=== PATIENT | female | born 1965 | race Caucasian/White ===

== ENCOUNTER → 2018-05-24 | Outpatient (CLI) | payer BC ==
--- NOTE | 2018-05-24 10:03 | Diagnostic Imaging Report ---
INDICATION: Chronic pain in right ankle. AP, oblique, lateral views of the right ankle are obtained. No acute fracture or acute bony abnormality is seen. There is chronic irregularity of the medial malleolus of the distal tibia. There is mild degenerative change of the ankle joint with osteophyte formation anteriorly. There is mild degenerative change of the talocalcaneal joint. IMPRESSION: Chronic findings as above with no acute abnormality. Dictated by: Dictated on workstation # [id number]
--- NOTE | 2018-05-24 10:34 | Diagnostic Imaging Report ---
INDICATION: Right foot pain. TIME OF EXAM: 9:46 AM FINDINGS: Three views of the right foot were obtained. There is a bunion deformity present. Metatarsals otherwise appear to be intact. Phalanges are intact. Midfoot and hindfoot are unremarkable. No fractures are seen. IMPRESSION: Chronic changes. No acute bony abnormality is detected. Dictated by: Dictated on workstation # [id number]
== END ==
LOC: RAD FS 09:42
PROVIDERS: ATTEND Nurse Practitioner
DX: M20.11 Hallux valgus (acquired), right foot (principal); M25.771 Osteophyte, right ankle; M19.071 Primary osteoarthritis, right ankle and foot; M89.9 Disorder of bone, unspecified
CPT/HCPCS: 73610; 73630

== ENCOUNTER 2019-07-12 08:45 | Outpatient (RCR) | payer BC, OTHER ==
[~2019-07-12] VITALS: Ht 165.1 cm; Wt 85.9 kg
[~2019-07-12 08:45] MED LIST: GBPN600T PO; GLYB5TAB6 PO; IBUP-1780 PO; LISI-552 PO
== END 2019-07-12 14:41 | disposition home or self-care (01) ==
LOC: PREOP 08:45
PROVIDERS: ATTEND Surgery
DX: Z01.812 Encounter for preprocedural laboratory examination (principal); Z11.59 Encounter for screening for other viral diseases; K62.89 Other specified diseases of anus and rectum
CPT/HCPCS: 87635

== ENCOUNTER 2019-07-16 09:05 | Day surgery (SDC) | payer BC, OTHER ==
[~2019-07-16] VITALS: Ht 165 cm; Wt 77.2 kg
[~2019-07-16 09:05] MED LIST changes: +LACTATED RINGERS 1,000 ML IV ONE
[2019-07-16] MEDS ORDERED: LACTATED RINGERS 1,000 ML IV STA (09:10)
[2019-07-16 09:15] VITALS: BP 144/96
--- OUTSIDE RECORDS SUMMARY | 2019-07-16 09:35 | XMS REPORT ---
Author Author Lulu LECHUGA Organization [facility] Address [address] [place] [address] Care Team Providers Care Cigarette Stamper Name Role Phone MOHINI LECHUGA Unavailable PROBLEMS Type Condition ICD9-CM Code YPC96-AT Code Onset Dates Condition S tatus SNOMED Code Problem Neuropathy 355.9 Apr, 0 262216 004 Problem Neuropathy G62.9 Apr, 0 968137 004 Problem Nausea with vomiting 787.01 Sep, 0 32051915 Problem Well woman exam with routine gynecological exam V72.31 Apr, 0 907712809310305 Problem Type 2 diabetes mellitus without complication E11. 9 June, 0 579030175 Problem Primary osteoarthritis of right knee M17.11 Aug, 0 067556369 Problem Well woman exam with routine gynecological exam Z01.419 Apr, 0 643434546501032 Problem Acute lateral meniscus tear of right knee S83.281A Oct, 0 994481973 Problem Acute lateral meniscus tear of right knee 836.1 Oct, 0 864932347 Problem Other ganglion and cyst of synovium, tendon, and bursa (727.49) M67.49 Feb, 0 Problem Nausea with vomiting R11.2 Sep, 0 26394290 Problem Major depression F32.9 Active 370 178913 Problem Type 2 diabetes mellitus without complication 250.00 June, 0 725815568 Problem Vitamin D deficiency E55.9 Active 15342710 Problem Cigarette nicotine dependence, uncomplicated F17.2 10 Apr, 0 412132480 Problem Primary osteoarthritis of right knee 715.16 Aug, 0 856207316 Problem Cigarette nicotine dependence, uncomplicated 305.1 Apr, 0 764902294 Problem Pure hypercholesterolemia E78.00 Acti ve 291327633 Problem Diabetic neuropathy E11.40 Active 785082631 ALLERGIES No Information ENCOUNTERS Encounter Location Date Diagnosis [facility] [address] [place] [address] Jul, [facility] [address] [address] Jul, Pain R52 [facility] [address] [address] June, Pain R52 [facility] [address] [place] [address] May, Major depression F32.9 [facility] [address] [place] [address] May, [facility] [address] [place] [address] May, Pain R52 [facility] [address] [facility] [place] [address] Apr, Shoulder injury, left, initial encounter S49.92XA and Drug screening, pre-employment Z02.1 [facility] [address] [place] [address] Apr, Major depression F32.9 ; Foot pain, righ t M79.671 and Diabetic neuropathy E11.40 [facility] [address] [place] [address] Apr, Major depression F32.9 [facility] [address] [place] [address] Apr, Pain R52 [facility] [address] [place] [address] Mar, Major depression F32.9 ; Diabetic neurop athy E11.40 ; Vitamin D deficiency E55.9 and Pure hypercholesterolemia E78.00 [facility] [address] [facility] [id number] [address] [place] [address] Mar, Pain R52 [facility] [address] [facility] [id number] [address] [place] [address] Jan, [facility] [address] [facility] [id number] [address] [place] [address] Jan, [facility] [address] [facility] [id number] [address] [place] [address] Jan, [facility] [address] [facility] [id number] [address] [place] [address] Jan, [facility] [address] [facility] [id number] [address] [place] [address] Feb, IMMUNIZATIONS No Known Immunizations SOCIAL HISTORY Never Assessed REASON FOR VISIT Controlled Med Refill 05/04 PLAN OF CARE VITAL SIGNS MEDICATIONS Medication Instructions Dosage Frequency Start Date End Date Duration S tatus Hydrocodone-Acetaminophen 7.5-325 MG Orally TID PRN 1 tablet as nee ded Apr, 28 days Active RESULTS No Results PROCEDURES No Known procedures INSTRUCTIONS MEDICATIONS ADMINISTERED No Known Medications MEDICAL (GENERAL) HISTORY Type Description Date Medical History Neuropathy Medical History Osteoarthritis Medical History Type 2 diabetes mellitus Medical History Hypertension Medical History Depression Surgical History Right Knee Surgery Surgical History hysterectomy, vaginal Surgical History tubal ligation Surgical History cholecystectomy Hospitalization History see surgeries
--- OUTSIDE RECORDS SUMMARY | 2019-07-16 09:35 | XMS REPORT ---
Author Author Lulu LECHUGA Organization [facility] Address [address] [place] [address] Care Team Providers Care Cork Insulator Helper Name Role Phone MOHINI LECHUGA Unavailable PROBLEMS Type Condition ICD9-CM Code DRR62-DD Code Onset Dates Condition S tatus SNOMED Code Problem Neuropathy G62.9 30 Apr, 2010 Active 067526 004 Problem Primary osteoarthritis of right knee M17.11 22 Aug, 2014 Active 487850422 Problem Acute lateral meniscus tear of right knee S83.2 81A 28 Oct, 2014 Active 004146397 Problem Other ganglion and cyst of synovium, tendon, and bursa (727.49) M67.49 09 Feb, 2013 Active Problem Moderate episode of recurrent major depressive disorder F33.1 Active 519021311 Problem Cigarette nicotine dependence, uncomplicated F1 7.210 10 Apr, 2015 Active 726911044 Problem Morbid obesity E66.01 Active 80180 6002 Problem Nausea with vomiting R11.2 Sep, Active 58758453 Problem Vitamin D deficiency E55.9 Active 33921453 Problem Diabetic neuropathy E11.40 Active 622390167 Problem Pure hypercholesterolemia E78.00 Acti ve 940241192 Problem Type 2 diabetes mellitus wit h other specified complication, without long-term current use of insulin E11.69 Active 54196885 ALLERGIES No Known Allergies ENCOUNTERS Encounter Location Date Diagnosis [address] [id number] [place] [address] Aug, [address] [id number] [address] May, Left hand pain M79.642 ; Typ e 2 diabetes mellitus with other specified complication, without long-term current use of insulin E11.69 ; Morbid obesity E66.01 ; Diabetic neuropathy E11.40 ; Other ganglion and cyst of synovium, tendon, and bursa(727.49) M67.49 and Lice B85.[address] [id number] [place] [address] May, Pain R52 [address] [id number], [place] [address] Apr, Moderate episode of recurren t major depressive disorder F33.1 ; Morbid obesity E66.01 ; Pain in right hand M79.641 and Pain in left hand M79.642 [facility] [address] [id number] [place] [address] Apr, Pain R52 [address] [id number], [place] [address] Apr, [facility] [address] [facility]NOTE 3[facility] [id number] [address] [place] [address] Mar, [address] [id number], [place] [address] Mar, Morbid obesity E66.01 ; Type 2 diabetes mellitus with other specified complication, without long-term current use of insulin E11.69 ; Vitamin D deficiency E55.9 ; Moderate episode of recurrent major depressive disorder F33.1 and Pain R52 [address] [id number], [place] [address] Mar, Pain R52 [place] [address] [id number] [address] Feb, Screening for breast cancer Z12.[address] [id number], [place] [address] Feb, Moderate episode of recurren t major depressive disorder F33.1 ; Type 2 diabetes mellitus with other specified complication, without long-term current use of insulin E11.69 ; Morbid obesity E66.01 ; Neuropathy G62.9 and Acute non-recurrent maxillary sinusitis J01.[address] [id number], [place] [address] Feb, Pain R52 [facility] [address] [facility]NOTE 3[facility] [id number] [address] [place] [address] Feb, Screening for breast cancer Z12.[address] [id number] [place] [address] Jan, Pain R52 and High risk medic ation use Z79.[address] [id number], [place] [address] Jan, [address] [id number] [place] [address] Jan, Pain R52 [address] [id number], [place] [address] Dec, High risk medication use Z79 .[address] [id number], [place] [address] Dec, Moderate episode of recurren t major depressive disorder F33.1 ; Diabetic neuropathy E11.40 ; Type 2 diabetes mellitus with other specified complication, without long-term current use of insulin E11.69 and Pure hypercholesterolemia E78.00 [facility] [address] [id number], [place] [address] Dec, [facility] [address] [id number], [place] [address] Dec, Pain R52 [facility] [address] [id number] [place] [address] Nov, [address] [id number] [place] [address] Nov, High risk medication use Z79 .899 and Pain R52 [address] [id number] [place] [address] Nov, High risk medication use Z79 .899 ; Diabetic neuropathy E11.40 ; Pure hypercholesterolemia E78.00 ; Acute pain of left knee M25.562 ; Cigarette nicotine dependence, uncomplicated F17.210 ; Primary osteoarthritis of right knee M17.11 and Vitamin D deficiency E55.9 [facility] [address] [id number] [place] [address] Oct, Pain R52 [facility] [address] [id number] [place] [address] Sep, Pain R52 [facility] [address] [id number] [place] [address] Sep, Pain R52 [facility] [address] [id number] [place] [address] Aug, Diabetic neuropathy E11.40 [facility] [address] [id number] [place] [address] Jul, Pain R52 [facility] [address] [id number] [place] [address] Jul, [facility] [address] [id number] [place] [address] Jul, Pain R52 [facility] [address] [id number] [place] [address] June, Pain R52 [facility] [address] [id number] [place] [address] May, Major depression F32.9 [facility] [address] [id number] [place] [address] May, [facility] [address] [id number] [place] [address] May, Pain R52 [facility] [address] [id number] [place] [address] Apr, Shoulder injury, left, initi al encounter S49.92XA and Drug screening, pre-employment Z02.1 [facility] [address] [id number] [place] [address] Apr, Major depression F32.9 ; Jignesh t pain, right M79.671 and Diabetic neuropathy E11.[address] [id number], [place] [address] Apr, Major depression F32.[address] [id number], [place] [address] 14 Apr, 2018 Pain R52 [address] 340 [id number], [place] [address] 20 Mar, 2018 Major depression F32.9 ; Porsche betic neuropathy E11.40 ; Vitamin D deficiency E55.9 and Pure hypercholesterolemia E78.00 [facility] [address] [facility]NOTE [facility]] [id number] [address] [place] [address] 13 Mar, 2018 Pain R52 [facility] [address] [id number] [address] [place] [address] 30 Jan, 2018 [facility] [address] [facility]NOTE [facility]] [id number] [address] [place] [address] Jan, [facility] [address] [id number] [address] [place] [address] Jan, [facility] [address] [facility]NOTE 3] [id number] [address] [place] [address] Jan, [facility] [address] [facility]NOTE 3] [id number] [address] [place] [address] Feb, IMMUNIZATIONS No Known Immunizations SOCIAL HISTORY Never Assessed REASON FOR VISIT Fatigue med F/U, right foot pain. love oviedo PLAN OF CARE Activity Details Follow Up prn Reason: VITAL SIGNS Height 5ft 5in in 2018-05-14 Weight 198 lbs 2018-05-14 Temperature 97.2 degrees Fahrenheit 2018-05-14 Heart Rate 94 bpm 2018-05-14 Respiratory Rate 18 2018-05-14 BMI 32.95 kg/m2 2018-05-14 Blood pressure systolic 110 mmHg 2018-05-14 Blood pressure diastolic 70 mmHg 2018-05-14 MEDICATIONS Medication Instructions Dosage Frequency Start Date End Date Duration S tatus Lipitor 10 MG Orally Once a day 1 tablet 24h Active Hydrocodone-Acetaminophen 7.5-325 MG Orally TID PRN 1 tablet as nee ded Apr, 28 days Active Cymbalta 60 MG Orally Once a day 1 capsule 24h Mar, 30 day(s) Active Glucophage 1000 MG Orally Once a day 1 tablet with a meal 24h Active Neurontin 600 MG Orally Three times a day 1 capsule 8h 30 days Active Lisinopril 10 MG Orally Once a day 1 tablet 24h 30 d ay(s) Active GlyBURIDE 5 TAKE 1 TABLET BY MOUTH DAILY WITH BREAKFAST Active [place] 3 1000 MG Orally Once a day 1 capsule 24h 30 d ay(s) Not-Taking Ibuprofen 800 MG Orally Three times a day 1 tablet with food or milk as needed 8h Active Xanax 0.25 MG Orally TID PRN 1 tablet Apr, 30 da ys Active Albuterol Sulfate HFA 108 (90 Base) MCG/ACT Inhalation every 6 hrs 2 puffs as needed 6h Not-Taking Flonase 50 MCG/ACT Nasally Once a day 1 spray in each nostril 24h 30 day(s) Not-Taking Ergocalciferol 98830 UNIT Orally once weekly 1 capsule Active Lisinopril 10 TAKE 1 TABLET (10 MG) BY MOUTH DAILY. Active RESULTS No Results PROCEDURES No Known procedures INSTRUCTIONS MEDICATIONS ADMINISTERED No Known Medications MEDICAL (GENERAL) HISTORY Type Description Date Medical History Neuropathy Medical History Osteoarthritis Medical History Type 2 diabetes mellitus Medical History Hypertension Medical History Depression Surgical History Right Knee Surgery Surgical History Hysterectomy-Vaginal Surgical History Tubal Ligation Surgical History Lap M[place]ille Hospitalization History Surgeries
--- OUTSIDE RECORDS SUMMARY | 2019-07-16 09:35 | XMS REPORT | Continuity of Care Document ---
Author Organization Unknown Address Unknown Phone Unavailable Allergies Active Description Code Type Severity Reaction Onset Reported/Identified Relationship to Patient Clinical Status Yes No Known Drug Allergies [id number] Drug Allergy Unknown N/A 07/09/2019 Medications There is no data. Problems Date Dx Coded Attending Type Code Diagnosis Diagnosed By 05/25/2018 BILLY CARR Ot M19.071 PRIMARY OSTEOARTHRITIS, RIGHT ANKLE AND 05/25/2018 BILLY CARR Ot M20.11 HALLUX VALGUS (ACQUIRED), RIGHT FOOT 05/25/2018 BILLY CARR Ot M25.771 OSTEOPHYTE, RIGHT ANKLE 05/25/2018 BILLY CARR Ot M89.9 DISORDER OF BONE, UNSPECIFIED 06/11/2018 BILLY CARR Ot M19.071 PRIMARY OSTEOARTHRITIS, RIGHT ANKLE AND 06/11/2018 BILLY CARR Ot M20.11 HALLUX VALGUS (ACQUIRED), RIGHT FOOT 06/11/2018 BILLY CARR Ot M25.771 OSTEOPHYTE, RIGHT ANKLE 06/11/2018 BILLY CARR Ot M89.9 DISORDER OF BONE, UNSPECIFIED 07/03/2019 BILLY CARR Ot M19.071 PRIMARY OSTEOARTHRITIS, RIGHT ANKLE AND 07/03/2019 BILLY CARR Ot M20.11 HALLUX VALGUS (ACQUIRED), RIGHT FOOT 07/03/2019 BILLY CARR Ot M25.771 OSTEOPHYTE, RIGHT ANKLE 07/03/2019 BILLY CARR Ot M89.9 DISORDER OF BONE, UNSPECIFIED Procedures There is no data. Results Test Result Range PDM - 09 PANEL (PROFILE 1) - 12/05/18 11 :01 Prescribed Drug 1 Xanax(TM) NRG Creatinine 137.8 mg/dL > or = 20.0 pH 5.9 4.5-9.0 Oxidant NEGATIVE mcg/mL <200 Amphetamines NEGATIVE ng/mL <500 medMATCH Amphetamines CONSISTENT NRG Benzodiazepines NEGATIVE ng/mL <100 medMATCH Benzodiazepines INCONSISTENT N RG Marijuana Metabolite NEGATIVE ng/mL <20 medMATCH Marijuana Metab CONSISTENT NRG Cocaine Metabolite NEGATIVE ng/mL <150 medMATCH Cocaine Metab CONSISTENT NRG Opiates POSITIVE ng/mL <100 Oxycodone NEGATIVE ng/mL <100 medMATCH Oxycodone CONSISTENT NRG COMMENT NRG Codeine NEGATIVE ng/mL <50 medMATCH Codeine CONSISTENT NRG Hydrocodone 1001 ng/mL <50 medMATCH Hydrocodone CONSISTENT NRG Hydromorphone 258 ng/mL <50 medMATCH Hydromorphone CONSISTENT NRG Morphine NEGATIVE ng/mL <50 medMATCH Morphine CONSISTENT NRG Norhydrocodone 520 ng/mL <50 medMATCH Norhydrocodone CONSISTENT NRG Prescribed Drug 2 [place](TM) NRG Barbiturates NEGATIVE ng/mL <300 medMATCH Barbiturates CONSISTENT NRG Methadone Metabolite NEGATIVE ng/mL <100 medMATCH Methadone Metab CONSISTENT NRG Phencyclidine NEGATIVE ng/mL <25 medMATCH Phencyclidine CONSISTENT NRG Coronavirus SARS-CoV-2 SO 2018 0 14:03 Coronavirus Ab [Units/volume] in Serum Negative Negative Encounters ACCT No. Visit Date/Time Discharge Status Pt. Type Provider Facility Loc./Unit Complaint [id number] 03/21/2019 14:30:00 03/21/2019 23:59: 59 CLS Outpatient [facility] [id number] 12/05/2018 10:15:00 Document Registration [id number] 07/12/2019 08:45:00 020 14:41:00 DIS Outpatient RAMON GANN DO [facility] PREOP COLONOSCOPY [id number] 05/24/2018 09:42:00 019 23:59:59 CLS Outpatient BILLY CARR [facility] RAD FS RIGHT ANKLE PAIN HALLU X VALGUS [id number] 07/16/2019 13:00:00 P EN Preadmit RAMON GANN DO [facility] ENDO RECTAL PAIN
[2019-07-16] MEDS ORDERED: proPOfol 200 MG/20 ML (DIPRIVAN) VIAL IV ONE (09:39)
[2019-07-16] MEDS ORDERED: MIDAZOLAM 2 MG/2 ML (VERSED) VIAL ONE (09:40)
--- NOTE | 2019-07-16 09:40 | Progress Note-Pre Operative ---
Pre-Operative Progress Note H&P Reviewed The H&P was reviewed, patient examined and no changes noted. Date Seen by Provider: July 16, 2019 Time Seen by Provider: 09:40 Date H&P Reviewed: July 16, 2019 Time H&P Reviewed: 09:40 Pre-Operative Diagnosis: rectal pain RAMON GANN DO July 16, 2019 09:40
[2019-07-16] MEDS ORDERED: HYDR-4342 PO (09:46)
[2019-07-16] MEDS ORDERED: METF-399 PO (09:46)
[2019-07-16] MEDS ORDERED: DICY10CA12 PO (09:46)
[2019-07-16 10:25] VITALS: BP 129/75
--- NOTE | 2019-07-16 10:27 | Progress Note-Post Operative ---
Post-Operative Progess Note Surgeon (s)/Clinical Account Executive (s) Surgeon RAMON GANN DO Clinical Account Executive: na Pre-Operative Diagnosis rectal pain Post-Operative Diagnosis normal colonoscopy Procedure & Operative Findings Date of Procedure 07/16/19 Procedure Performed/Findings colonoscopy Anesthesia Type per [facility] Estimated Blood Loss Estimated blood loss (mL): none Specimens/Packing Specimens Removed na RAMON GANN DO July 16, 2019 10:27
--- NOTE | 2019-07-16 10:29 | Discharge Inst-Simple/Standard ---
Discharge Inst-Standard Patient Instructions/Follow Up Plan of Care/Instructions/FU: 2-3 weeks Arabella Activity as Tolerated: Yes Discharge Diet: Regular Diet (high fiber) RAMON GANN DO July 16, 2019 10:29
[2019-07-16 10:30] VITALS: BP 167/82
[2019-07-16 11:00] VITALS: BP 152/88
--- NOTE | 2019-07-16 11:09 | Anesthesia-General Post-Op ---
MAC Patient Condition Mental Status/LOC: Same as Preop Cardiovascular: Satisfactory Nausea/Vomiting: Absent Respiratory: Satisfactory Pain: Controlled Complications: Absent Post Op Complications Complications None Follow Up Care/Instructions Patient Instructions None needed. Anesthesiology Discharge Order Discharge Order Patient is doing well, no complaints, stable vital signs, no apparent adverse anesthesia problems. REINA BAHENA DO July 16, 2019 11:09
[2019-07-16 11:15] VITALS: BP 152/88
--- NOTE | 2019-07-16 19:02 | OPERATIVE REPORT ---
DATE OF SERVICE: 07/16/2019 PREOPERATIVE DIAGNOSIS: Rectal pain. POSTOPERATIVE DIAGNOSES: Normal colon. PROCEDURE: Colonoscopy. SURGEON: Ramon Bell DO ANESTHESIA: Per MDA. ESTIMATED BLOOD LOSS: None. COMPLICATIONS: None. INDICATIONS: The patient is a 53-year-old female who has been having rectal pain, unknown source found. She understands risks and benefits of procedure and wished to proceed with procedure. Consent was signed in the chart. DESCRIPTION OF PROCEDURE: The patient was taken to the endoscopy suite, placed in left lateral recumbent position. Timeout was performed. Digital rectal exam was performed. There were no palpable polyps, masses or ulcerations. Scope was inserted in the rectum and advanced all the way to cecum with minimal difficulty. Prep was adequate with irrigation and suction. Scope was then slowly retracted back. There were no polyps, masses or ulcerations within the cecum, ascending, transverse, descending and sigmoid colon. Once in the rectum, scope was retroflexed noting no other pathology. Scope was returned to its normal position, slowly withdrawn until completely removed. The patient tolerated procedure well without any complications. She was taken to recovery room in stable condition. RECOMMENDATIONS: The patient will be changed to a high fiber diet to see if this gives her any improvement. She will need a repeat colonoscopy per screening guidelines. Any issues before that be seen at that time. The patient will follow up in the office in two to three weeks to see how she is doing. Job ID: [id number] DocumentID: [id number] Dictated Date: 07/16/2019 10:31:25 Office Workforce Planner Date: 07/16/2019 19:01:52 Dictated By: RAMON BELL DO
== END 2019-07-16 11:15 | disposition home or self-care (01) ==
LOC: ENDO 09:05
PROVIDERS: ATTEND Surgery
DX: K62.89 Other specified diseases of anus and rectum (principal); I10 Essential (primary) hypertension; E11.9 Type 2 diabetes mellitus without complications; K58.9 Irritable bowel syndrome, unspecified; F17.210 Nicotine dependence, cigarettes, uncomplicated; Z79.899 Other long term (current) drug therapy; Z79.84 Long term (current) use of oral hypoglycemic drugs; Z90.710 Acquired absence of both cervix and uterus; Z98.51 Tubal ligation status; Z83.6 Family history of other diseases of the respiratory system
CPT/HCPCS: 82962

== ENCOUNTER → 2019-08-30 | Outpatient (CLI) | payer OTHER ==
[~2019-08-30] MED LIST changes: +DICY10CA12 PO; +HYDR-4342 PO; -LACTATED RINGERS 1,000 ML IV ONE; +METF-399 PO
== END ==
LOC: LAB FS 10:27
PROVIDERS: ATTEND Emergency Medicine
DX: Z01.812 Encounter for preprocedural laboratory examination (principal); G56.02 Carpal tunnel syndrome, left upper limb; Z20.828 Contact with and (suspected) exposure to other viral communicable diseases
CPT/HCPCS: 87635

== ENCOUNTER → 2019-09-20 | Outpatient (CLI) | payer OTHER ==
[~2019-09-20] MED LIST changes: +HYDR-3817 PO; -HYDR-4342 PO
== END ==
LOC: LAB FS 10:01
PROVIDERS: ATTEND Emergency Medicine
DX: Z01.812 Encounter for preprocedural laboratory examination (principal); G56.02 Carpal tunnel syndrome, left upper limb; Z20.828 Contact with and (suspected) exposure to other viral communicable diseases
CPT/HCPCS: 87635

== ENCOUNTER 2020-09-21 05:35 | Outpatient (CLI) | payer BC ==
[~2020-09-21] VITALS: Ht 165.1 cm; Wt 84.0 kg
[~2020-09-21 05:35] MED LIST changes: +GLBR5T PO; -GLYB5TAB6 PO; -LISI-552 PO; +LISI20TA26 PO
[2020-09-21] MEDS ORDERED: BUPR-42 PO (09:55)
[2020-09-21] MEDS ORDERED: CHOL500049 PO (09:55)
[2020-09-21] MEDS ORDERED: CALC-250 PO (09:55)
[2020-09-21] MEDS ORDERED: PREG75CA PO (09:55)
== END 2020-09-21 10:14 | disposition home or self-care (01) ==
LOC: PREOP 05:35
PROVIDERS: ATTEND Podiatrist Foot & Ankle Surgery
DX: Z01.818 Encounter for other preprocedural examination (principal)

== ENCOUNTER → 2020-09-25 | Outpatient (CLI) | payer BC ==
[~2020-09-25] MED LIST changes: +ATOR20TA66 PO; +BUPR-42 PO; +CALC-250 PO; +CEPH500C PO; +CHOL500049 PO; +DULO60CA59 PO; +NICO-586 TD; +OMEP-401 PO; +ONDA4TAB11 PO; +OXYC1TAB11 PO; +PANT40TA52 PO; +PREG75CA PO
== END ==
LOC: LAB FS 10:00
PROVIDERS: ATTEND Podiatrist Foot & Ankle Surgery
DX: Z01.812 Encounter for preprocedural laboratory examination (principal); Z20.822 Contact with and (suspected) exposure to COVID-19
CPT/HCPCS: 87635

== ENCOUNTER 2020-09-28 05:55 | Day surgery (SDC) | payer BC ==
[2020-09-28] VITALS (11 sets, daily range): BP systolic 111–147; BP diastolic 56–82
[~2020-09-28] VITALS: Ht 165 cm; Wt 84.0 kg
[~2020-09-28 05:55] MED LIST changes: -ATOR20TA66 PO; -CEPH500C PO; -DULO60CA59 PO; -NICO-586 TD; -OMEP-401 PO; -ONDA4TAB11 PO; -OXYC1TAB11 PO; -PANT40TA52 PO
[2020-09-28] MEDS ORDERED: ceFAZolin INJECTION 1,000 MG in WATER (STERILE) FOR INJECTION 10 ML IV ONE (06:15)
[2020-09-28] MEDS ORDERED: ceFAZolin INJECTION 1,000 MG ONE (06:55)
[2020-09-28] MEDS ORDERED: LACTATED RINGERS 1,000 ML IV PRN (07:00)
[2020-09-28] MEDS ORDERED: PANT40TA52 PO (07:12)
[2020-09-28] MEDS ORDERED: NICO-586 TD (07:12)
[2020-09-28] MEDS ORDERED: ONDA4TAB11 PO (07:12)
[2020-09-28] MEDS ORDERED: ATOR20TA66 PO (07:12)
[2020-09-28] MEDS ORDERED: OMEP-401 PO (07:12)
[2020-09-28] MEDS ORDERED: DULO60CA59 PO (07:13)
[2020-09-28] MEDS ORDERED: LIDOCAINE 1% INJ 20 ML 20 ML VIAL ONE (07:16)
[2020-09-28] MEDS ORDERED: BUPIVACAINE 0.5% 30 ML (SENSORCAINE) VIAL ONE (07:16)
[2020-09-28] MEDS ORDERED: LIDOCAINE PF 2% 5 ML (XYLOCAINE) VIAL ONE (07:22)
[2020-09-28] MEDS ORDERED: fentaNYL INJ 100 MCG/2 ML AMP ONE (07:22)
[2020-09-28] MEDS ORDERED: ONDANSETRON 4 MG/2 ML (SDV) Z0FRAN ONE (07:22)
[2020-09-28] MEDS ORDERED: proPOfol 200 MG/20 ML (DIPRIVAN) VIAL IV ONE (07:22)
[2020-09-28] MEDS ORDERED: MIDAZOLAM 2 MG/2 ML (VERSED) VIAL ONE (07:22)
--- NOTE | 2020-09-28 07:54 | Progress Note-Pre Operative ---
Pre-Operative Progress Note H&P Reviewed The H&P was reviewed, patient examined and no changes noted. Date Seen by Provider: Sep 28, 2020 Time Seen by Provider: 07:53 Date H&P Reviewed: Sep 28, 2020 Time H&P Reviewed: 07:53 Pre-Operative Diagnosis: Hallux Valgus, Hypertrophic 2nd Metatarsal, Soft Tissue Lesion, 2nd HT, JAMIR Mayes DPM Sep 28, 2020 07:54
[2020-09-28] MEDS ORDERED: SEVOFLURANE (ULTANE) 15 ML INHAL SOLN ONE (09:46)
--- NOTE | 2020-09-28 09:59 | Anesthesia-General Post-Op ---
General Patient Condition Mental Status/LOC: Same as Preop Cardiovascular: Satisfactory Nausea/Vomiting: Absent Respiratory: Satisfactory Pain: Controlled Complications: Absent Post Op Complications Complications None Follow Up Care/Instructions Patient Instructions None needed. Anesthesia/Patient Condition Patient Condition Patient is doing well, no complaints, stable vital signs, no apparent adverse anesthesia problems. No complications reported per nursing. JORGE LUIS NORMAN CRNA Sep 28, 2020 09:59
[2020-09-28] MEDS ORDERED: HYDROmorphone 2 MG/ML VIAL (DILAUDID) IV ONE (10:00)
[2020-09-28] MEDS ORDERED: MEPERIDINE (DEMEROL) INJ 50 MG/ML IVP ONE (10:00)
[2020-09-28] MEDS ORDERED: morphine INJ 10 MG/ML 1ML (SYR OR VIAL) IVP ONE (10:00)
[2020-09-28] MEDS ORDERED: ONDANSETRON 4 MG/2 ML (SDV) Z0FRAN IVP PRN (10:00)
--- NOTE | 2020-09-28 10:05 | Progress Note-Post Operative ---
Post-Operative Progess Note Surgeon (s)/Marble Installer (s) Surgeon JAMIR DAWSON DPM Marble Installer: none Pre-Operative Diagnosis Hallux Valgus, Hypertrophic 2nd Metatarsal, Soft Tissue Lesion, 2nd HT, lef Post-Operative Diagnosis same, all left foot Procedure & Operative Findings Date of Procedure 09/28/20 Procedure Performed/Findings Ernst-Ede bunionectomy, 2nd metatarsal osteotomy, excision of soft tissue lesion, right foot Anesthesia Type General Estimated Blood Loss Estimated blood loss (mL): Minimal Specimens/Packing Specimens Removed Soft tissue lesion, right JAMIR DAWSON DPM Sep 28, 2020 10:05
[2020-09-28] MEDS ORDERED: CEPH500C PO (10:10)
[2020-09-28] MEDS ORDERED: OXYC1TAB11 PO (10:10)
[2020-09-28] MEDS ORDERED: HYDROcodone/APAP 5 MG/325 MG (LORTAB) TAB PO PRN (10:15)
[2020-09-28] MEDS ORDERED: LACTATED RINGERS 1,000 ML IV SCH (10:15)
--- NOTE | 2020-09-28 10:37 | Diagnostic Imaging Report ---
INDICATION: Postop exam. TECHNIQUE/COMPARISON: AP and lateral views of the right foot were obtained with comparison made to the study of 05/24/2018. FINDINGS: There has been performance of osteotomy of the distal 1st metatarsal and in the 2nd proximal interphalangeal shafts. Cerclage wires, pins, and screws are present surrounding the 1st metatarsophalangeal joint and within the distal 2nd metatarsal with additional distal 2nd metatarsal osteotomy. No acute fracture or complication is seen. IMPRESSION: Post operative findings of bunion correction involving the great toe and distal 2nd metatarsal. Dictated by: Dictated on workstation # [id number]
[2020-09-28] MEDS ORDERED: HYDROcodone/APAP 5 MG/325 MG (LORTAB) TAB ONE (11:03)
--- NOTE | 2020-09-28 11:44 | Physical Therapy Ortho Eval ---
PT Orthopedic Evaluation Type of Surgery Hallux Valgus, Hypertrophic 2nd Metatarsal, Soft Tissue Lesion, 2nd HT Prior Level of Function Current Living Status: Other Family Locomotion (Upon Admit): Independent Established Durable Medical Eq: Front Wheeled Walker Subjective Subjective Patient in bed pre tx, agrees to PT, has no pain in right foot, states it is nu mb. Entry Into Home: Stairs Without Railing Steps Into Home: 1 Motor Control Motor Control: Motor Control WNL ROM ROM: WFL Transfer SCALE: Activities may be completed with or without assistive devices. 7-Yoafnqlvma-fyitwaw completes the activity by him/herself with no assistance from a helper. 5-Set-up or Clean-up Assistance-helper sets up or cleans up; patient completes activity. [place] assists only prior to or following the activity. 4-Supervision or Touching Assistance-helper provides verbal cues and/or touching/steadying and/or contact guard assistance as patient completes activity. Assistance may be provided throughout the activity or intermittently. 3-Partial/Moderate Assistance-helper does LESS THAN HALF the effort. [place] lifts, holds or supports trunk or limbs, but provides less than half the effort. 2-Substantial/Maximal Assistance-helper does MORE THAN HALF the effort. [place] lifts or holds trunk or limbs and provides more than half the effort. 3-Idfhbdwde-vivvdd does ALL the effort. Patient does none of the effort to complete the activity. Or, the assistance of 2 or more helpers is required for the patient to complete the activity. If activity was not attempted, code reason: 7-Patient Refused. 9-Not Applicable-not attempted and the patient did not perform the activity before the current illness, exacerbation or injury. 10-Not Attempted due to Environmental Limitations-(lack of equipment, weather restraints, etc.). 88-Not Attempted due to Medical Conditions or Safety Concerns. Transfers (B, C, W/C) (QC): 4 Gait Right Lower Extremity: Right Weight Bearing Status RLE: Non Weight Bearing Left Lower Extremity: Left Weight Bearing Status LLE: Full Weight Bearing Other Weight Bearing Inst.: okay to apply heel pressure for transfers and balance Summary/Comments Patient ambulated 100' with a rolling walker with CGA, she is compliant with her NWB on the right foot but can put heel on floor for balance, she also went up and down 1 step using a rolling walker with cues for step placement. Treatment Rendered Treatment: Therapeutic Exercises, Gait Train, Step Train Exercise Instruction: Ankle Pumps LAQ Assessment/Goals Goal Time Frame: 1 Visit Understands HEP: Yes Safe Ambulation: Yes Plan Treatment Plan: Discharge PT/Family Agrees to Plan: Yes Time Time In: 1022 Time Out: 1034 Total Billed Treatment Time: 12 Billed Treatment Time 1 visit RAFA 12' SAPNA MCDUFFIE PT Sep 28, 2020 11:44
--- NOTE | 2020-09-28 13:17 | OPERATIVE REPORT ---
DATE OF SERVICE: 09/28/2020 SURGEON: Sharonda Morris DPM. PREOPERATIVE DIAGNOSES: 1. Hallux abductovalgus metatarsal primus varus, right. 2. Hypertrophic second metatarsal, right. 3. Soft tissue lesion, right foot. POSTOPERATIVE DIAGNOSES: 1. Hallux abductovalgus metatarsal primus varus, right. 2. Hypertrophic second metatarsal, right. 3. Soft tissue lesion, right foot. PROCEDURES PERFORMED: 1. Modified Ernst-Ede bunionectomy, right. 2. Second metatarsal osteotomy, right. 3. Excision of soft tissue lesion, dorsum right foot. WOUND CLASS: Clean. ANESTHESIA: General. HEMOSTASIS: Pneumatic thigh tourniquet at 250 mmHg. INDICATIONS FOR PROCEDURE: This 55-year-old female presents complaining of a painful right foot. Conservative therapy is met with unsatisfactory results and the patient is agreeable to surgical intervention after risks and complications were discussed at length. No guarantees were extended to the patient and she is willing to proceed. DESCRIPTION OF PROCEDURE: The patient was brought back to the operating table, placed in a secure supine position. General anesthetic was then induced. Appropriate timeout was performed. Pneumatic thigh tourniquet was placed on the right lower extremity over several layers of padding. A 10 mL of 50:50 mix of 0.5% Marcaine and 2% Xylocaine was injected in a Coy block as well as infusion to the second metatarsal head area. The right foot was then prepped and draped in a normal sterile manner. The right foot was then elevated, allowed to exsanguinate after which the tourniquet was inflated to 250 mmHg. Attention was then directed to the dorsal aspect of the right first ray, where a 6 cm longitudinal linear incision was created overlying the first metatarsophalangeal joint area. The incision was deepened in the same plane with great care to identify and retract all vital neurovascular structures. Only the necessary blood vessels were cauterized as encountered. The incision was deepened down to the capsular tissue where a longitudinal capsulotomy was performed. Next, the hypertrophic medial eminence of the first metatarsal head was resected with a power sagittal saw. Dissection was carried out into the first intermetatarsal space, where a lateral release was performed. The conjoint tendon of the adductor hallucis was released as well as a lateral capsulorrhaphy and the fibular sesamoidal ligament. The hallux was then forcibly abducted releasing any additional fibers holding in its abnormal position. Next, a power sagittal saw was utilized to create a Chevron-type osteotomy from medial to lateral at the capital junction of the surgical neck and the first metatarsal head. This allowed the capital fragment to translocate laterally and was fixated in its corrected position with a 0.062 threaded K-wire driven from dorsal proximal to plantar distal with great care not to penetrate the articular cartilage. The K-wire was cut flush with the dorsal aspect of the first metatarsal. The head was further contoured and smoothed with a power bur and a power sagittal saw. Next, utilizing a 1 mm drill, the full thickness degeneration of the articular cartilage to the medial sagittal groove of the first metatarsal head was fenestrated. This area was approximately 1 cm in length and 5 mm in width. The wound was flushed with copious amounts of normal saline. Attention was then directed to the proximal phalanx of the right hallux, where a subperiosteal dissection was carried out. The osteotomy for the Ede type procedure was performed resecting a wedge of bone with the base medial and lateral cortices held intact. Two pilot supervisor holes were created at the dorsal medial aspect of the osteotomy with a 28-gauge monofilament wire passing through the pilot supervisor hole securing the osteotomy in a closed position. Excellent bony apposition and fixation was appreciated to the two osteotomies. The wounds were flushed with copious amounts of normal saline and closure was performed in layers. Deep closure was performed with 3-0 Vicryl, superficial with 4-0 Vicryl, skin closure with 4-0 Prolene in a horizontal mattress type stitch. Attention was then directed to the dorsal aspect of the right second metatarsophalangeal joint area, where a 4 cm longitudinal linear incision was created. The incision was deepened in the same plane with great care to identify and retract all vital neurovascular structures. The incision was deepened down to the second metatarsophalangeal joint area, where a longitudinal capsulorrhaphy was performed just medial to the extensor longus tendon. The incision was deepened down to the second metatarsal head, where a Maureen type osteotomy was performed. The capital fragment was translocated proximally. Again, this cut was performed to the dorsal aspect of the second metatarsal head and extended proximally parallel to what would be the weightbearing surface for the foot. This allowed the capital fragment to translocate proximally and medially and was fixated in its corrected position utilizing a 2.0 snap-off screw of 12 mm of length. Excellent bony apposition and fixation was appreciated. The head of the second metatarsal was further contoured and smoothed with a rongeur and power bur. The wound was flushed with copious amounts of normal saline after which closure was performed in layers. Deep closure was performed with 3-0 Vicryl, superficial with 4-0 Vicryl, and skin closure with 4-0 Prolene in a horizontal mattress type stitch. Attention was then directed to the dorsal aspect of the right fourth metatarsal head area, where a soft tissue lesion was palpated. A 2.5 cm longitudinal linear incision was created and blunt dissection was carried out through the soft tissue. There was a soft tissue lesion approximately 1.5 cm in diameter, extended to deep fascia and tendon. It had a yellow, lobulated appearance similar to adipose tissue with clear, distinctive borders. The lesion was removed and sent for gross and microscopic evaluation. No other pathological findings were identified. The wound was flushed with copious amounts of normal saline and closure was performed. Subcutaneous tissue was reapproximated with 4-0 Vicryl and skin closure with 4-0 Prolene in a horizontal mattress type stitch. Postoperative injection consisted of 15 mL of 0.5% Marcaine injected in a local infusion to the surgical site. Postoperative injection also included 10 mg of dexamethasone, 5 of which went into the first intermetatarsal space, the other 5 into the dorsal aspect of the right forefoot, where the soft tissue lesion was excised. The tourniquet was released noting appropriate cap refill time to all digits of the right foot. Postoperative dressing consisted of Betadine soaked Adaptic, sterile 4 x 4, and sterile Kerlix all secured with a Coban wrap. The patient tolerated the anesthesia and procedure well, was transported from the operating room to the recovery area with vital signs stable. She was given a prescription for oxycodone as well as Keflex. Job ID: [id number] DocumentID: [id number] Dictated Date: 09/28/2020 10:21:43 Netting Weaver Date: 09/28/2020 13:16:36 Dictated By: SUMEET RUTHD
== END 2020-09-28 11:50 | disposition home or self-care (01) ==
LOC: SDC 05:55
PROVIDERS: ATTEND Podiatrist Foot & Ankle Surgery
DX: Q66.211 Congenital metatarsus primus varus, right foot (principal); I10 Essential (primary) hypertension; F32.9 Major depressive disorder, single episode, unspecified; E11.9 Type 2 diabetes mellitus without complications; E66.9 Obesity, unspecified; Z68.30 Body mass index [BMI] 30.0-30.9, adult; Z79.899 Other long term (current) drug therapy
CPT/HCPCS: 28299; 73620; 82947; 87081; 97161; C1713 ×2; 88304